=== PATIENT | female | born 1960 | race Caucasian/White ===

== ENCOUNTER 2020-12-26 14:42 | Emergency (ER) | payer BC, OTHER ==
[~2020-12-26] VITALS: Ht 167.6 cm; Wt 72.6 kg
--- NOTE | 2020-12-26 15:16 | NUR ---
TO ER BED 3, C/O PAIN AND SWELLING TO L FA SINCE YESTERDAY, AAOX4, BREATHING EVEN AND NON LABORED
--- NOTE | 2020-12-26 16:00 | NUR ---
US AT BEDSIDE
[2020-12-26] MEDS ORDERED: CEPH500T PO (16:27)
[2020-12-26] MEDS ORDERED: SULF1TAB48 PO (16:27)
[2020-12-26 16:48] VITALS: BP 128/89
--- NOTE | 2020-12-26 16:48 | NUR ---
Patient discharged to home in stable condition. Written and verbal after care instructions given. Patient verbalizes understanding of instruction.
== END 2020-12-26 16:49 | disposition home or self-care (01) ==
LOC: ER 14:54
DX: S50.862A Insect bite (nonvenomous) of left forearm, initial encounter (principal); L03.114 Cellulitis of left upper limb; I10 Essential (primary) hypertension; Z79.899 Other long term (current) drug therapy; W57.XXXA Bitten or stung by nonvenomous insect and other nonvenomous arthropods, initial encounter; Y93.89 Activity, other specified; Y92.89 Other specified places as the place of occurrence of the external cause; Y99.8 Other external cause status
CPT/HCPCS: 93971-TC